=== PATIENT | male | born 1945 | race African-American/Black ===

== ENCOUNTER 2023-08-01 11:18 | Emergency (ER) | payer MEDICARE, BC ==
[~2023-08-01] VITALS: Ht 177.8 cm; Wt 77.0 kg
[2023-08-01 11:22] VITALS: O2SAT 98
[2023-08-01 12:24] LABS: HEMATOCRIT. 25.5 % (42.0-52.0); HEMOGLOBIN. 7.8 g/dL (14.0-18.0); MEAN CORPUSCULAR HEMOGLOBIN 29.4 pg (28.0-32.0); MEAN CORPUSCULAR HGB CONC 30.5 g/dL (31.0-37.0); MEAN CORPUSCULAR VOLUME 96.2 fL (80.0-94.0); MEAN PLATELET VOLUME 8.8 fl (7.4-10.4); PLATELET 147 x1000/uL (130-400); RED BLOOD CELL COUNT 2.65 mill/uL (4.7-6.1); RED CELL DISTRIBUTION WIDTH 16.6 % (11.6-14.6); WHITE BLOOD COUNT 13.8 x1000/uL (4.5-11.0)
[2023-08-01 12:32] LABS: DIFFERENTIAL COMMENT 1; INR 1.1; PROTHROMBIN TIME 11.3 sec (9.6-11.0)
[2023-08-01 12:35] LABS: CHLORIDE 114 mEq/L (98-107); INDEX HEMOLYSI 1 (1-3); INDEX ICTERIC 1 (1-4); INDEX LIPEMIC 1 (1-3); POTASSIUM 4.6 mEq/L (3.5-5.1); SODIUM 140 mEq/L (136-145)
[2023-08-01 12:42] LABS: ALANINE AMINOTRANSFERASE 13 IU/L (13-61); ALBUMIN 2.9 g/dL (3.4-5.0); ASPARTATE AMINOTRANSFERASE 19 IU/L (15-37); BILIRUBIN TOTAL 0.4 mg/dL (0.1-1.0); CALCIUM 8.4 mg/dL (8.5-10.1); CARBON DIOXIDE 22 mEq/L (21-32); CREATININE 2.6 mg/dL (0.6-1.3); GLUCOSE 172 mg/dL (70-105); PROTEIN TOTAL 5.9 g/dL (6.0-8.3); UREA NITROGEN BLOOD 34 mg/dL (7-21)
[2023-08-01 12:50] VITALS: BP 118/74; PULSE 116; RESP 19; TEMP 98.4
[2023-08-01 13:33] LABS: PLATELET ESTIMATE NORMAL
== END 2023-08-01 14:21 ==
LOC: ER 11:18 → CANBEDREQ 14:46
DX: R55 Syncope and collapse (principal); Z98.890 Other specified postprocedural states
CPT/HCPCS: 36415; 80053; 85025; 86850; 86900; 86920; 93005; 99285